=== PATIENT | female | born 1980 | race Caucasian/White ===

== ENCOUNTER 2022-12-22 12:27 | Observation (INO) | payer MEDICAID ==
[~2022-12-22] VITALS: Ht 164 cm; Wt 87.5 kg
[2022-12-22] MEDS ORDERED: PNV91TAB8 PO (13:07)
[2022-12-22 14:13] LABS: BASOPHILS % (AUTO) 0.2 % (0.0-2.0); EOSINOPHILS # (AUTO) 0.1 K/uL (0-0.4); EOSINOPHILS % (AUTO) 1.3 % (0.0-4.0); HEMATOCRIT 28.8 % (36-48); HEMOGLOBIN 9.8 g/dL (12.0-16.0); LYMPHOCYTES # (AUTO) 2.2 K/uL (2.5-16.5); LYMPHOCYTES % (AUTO) 22.8 % (20.5-51.1); MEAN CORPUSCULAR HEMOGLOBIN 31 pg (27-31); MEAN CORPUSCULAR HGB CONC 34 g/dL (33-37); MEAN CORPUSCULAR VOLUME 91.3 fL (80-94); MONOCYTES # (AUTO) 0.6 K/uL (0.8-1.0); MONOCYTES % (AUTO) 6.7 % (1.7-9.3); NEUTROPHILS # (AUTO) 6.7 K/uL (1.8-7.7); PLATELET COUNT (AUTO) 314 K/uL (140-450); RED BLOOD CELL COUNT(AUTO) 3.15 MIL/uL (4.20-5.40); RED CELL DISTRIBUTION WIDTH 14.2 % (11.6-13.7); WHITE BLOOD COUNT (AUTO) 9.7 K/uL (4.8-10.8)
[2022-12-22 14:20] LABS: ALBUMIN 2.7 g/dL (3.4-5.0); ANION GAP 13.2 (8-16); CARBON DIOXIDE 25.1 mmol/L (21-32); CREATININE 0.8 mg/dL (0.6-1.3); POTASSIUM 4.3 mmol/L (3.5-5.1); TOTAL BILIRUBIN 0.2 mg/dL (0.0-1.0)
[2022-12-22 15:35] VITALS: BP 142/69
== END 2022-12-22 17:00 | disposition home or self-care (01) ==
LOC: MLD 12:27
PROVIDERS: ADMIT Obstetrics & Gynecology; ATTEND Obstetrics & Gynecology
DX: O36.8130 Decreased fetal movements, third trimester, not applicable or unspecified (principal); Z20.822 Contact with and (suspected) exposure to COVID-19; O09.523 Supervision of elderly multigravida, third trimester; Z3A.31 31 weeks gestation of pregnancy
CPT/HCPCS: 36415; 76819; 80053; 85025; 85384; 86886; 86900; 86901; 87426; G0378; Q0092; 59025; 81000

== ENCOUNTER 2023-01-06 12:05 | Observation (INO) | payer MEDICAID ==
[~2023-01-06] VITALS: Ht 162.6 cm; Wt 89.8 kg
[2023-01-06 12:05] VITALS: BP 145/79
[~2023-01-06 12:05] MED LIST: PNV91TAB8 PO
[2023-01-06] MEDS ORDERED: CEPH-588 PO (21:12)
[2023-01-06] MEDS ORDERED: ACET-10509 PO (21:12)
== END 2023-01-06 12:55 | disposition still patient (30) ==
LOC: MLD 12:05
PROVIDERS: ADMIT Obstetrics & Gynecology; ATTEND Obstetrics & Gynecology
DX: O26.893 Other specified pregnancy related conditions, third trimester (principal); R10.9 Unspecified abdominal pain; Z3A.33 33 weeks gestation of pregnancy
CPT/HCPCS: G0378; G0379

== ENCOUNTER 2023-01-06 12:48 | Emergency (ER) | payer MEDICAID ==
[~2023-01-06] VITALS: Ht 165.1 cm; Wt 77.1 kg
[2023-01-06 12:53] VITALS: BP 165/88
--- NOTE | 2023-01-06 12:55 | NUR ---
AMB BED 2
[2023-01-06 13:21] LABS: BASOPHILS % (AUTO) 0.3 % (0.0-2.0); HEMOGLOBIN 10.6 g/dL (12.0-16.0); MEAN CORPUSCULAR HEMOGLOBIN 31 pg (27-31); MEAN CORPUSCULAR HGB CONC 34 g/dL (33-37); MEAN CORPUSCULAR VOLUME 90.5 fL (80-94); MONOCYTES # (AUTO) 0.5 K/uL (0.8-1.0); MONOCYTES % (AUTO) 3.1 % (1.7-9.3); NEUTROPHILS # (AUTO) 15.8 K/uL (1.8-7.7); PLATELET COUNT (AUTO) 349 K/uL (140-450); RED BLOOD CELL COUNT(AUTO) 3.42 MIL/uL (4.20-5.40); RED CELL DISTRIBUTION WIDTH 14.3 % (11.6-13.7); WHITE BLOOD COUNT (AUTO) 17.4 K/uL (4.8-10.8)
[2023-01-06 13:35] LABS: ANION GAP 16.6 (8-16); CARBON DIOXIDE 21.2 mmol/L (21-32); CREATININE 0.7 mg/dL (0.6-1.3); POTASSIUM 3.8 mmol/L (3.5-5.1); TOTAL BILIRUBIN 0.3 mg/dL (0.0-1.0)
[2023-01-06 13:38] LABS: LYMPHOCYTES % (AUTO) 5.5 % (20.5-51.1); NEUTROPHILS % (AUTO) 91.1 % (42.2-75.2)
[2023-01-06 14:19] LABS: APPEARANCE,URINE CLOUDY (CLEAR); BILIRUBIN,URINE NEGATIVE (NEGATIVE); BLOOD, URINE TRACE-I (NEGATIVE); COLOR,URINE YELLOW (YELLOW); LEUKOCYTE ESTERASE ,URINE 2+ (NEGATIVE); NITRITE, URINE NEGATIVE (NEGATIVE); UGLUCOSE NEGATIVE (NEGATIVE)
[2023-01-06 14:25] LABS: RBC,URINE 0-5 /HPF (0-5); URINE AMORPHOUS URATE 1+ /HPF (None Seen); WBC,URINE 16-25 (MOD) /HPF (0-5)
[2023-01-06] MEDS ORDERED: ONDANSETRON 4 MG/2 ML VIAL IM ONE (15:50)
[2023-01-06] MEDS ORDERED: ONDANSETRON 4 MG/2 ML VIAL IVP ONE (15:50)
[2023-01-06] MEDS ORDERED: NACL 0.9% 1,000 ML IV ONE (15:50)
[2023-01-06] MEDS ORDERED: ACETAMINOPHEN EXTRA STRENGTH 500 MG TAB PO ONE ×2 (15:55→19:20)
[2023-01-06] MEDS ORDERED: cefTRIAXone 1,000 MG VIAL ONE (16:35)
--- NOTE | 2023-01-06 19:00 | NUR ---
PT C/O RIGHT SIDED ABDOMINAL PAIN SINCE THIS AM, 28 WEEKS CLEARED BY [facility]: DENIES
--- NOTE | 2023-01-06 20:00 | NUR ---
PT IS HUNGRY AND WANTED TO EAT. MD NOTIFIED. ITEM WAS PROVIDED. PT IS TOLERATED.
--- NOTE | 2023-01-06 21:00 | NUR ---
PT WISH TO GO HOME. DR. SOLORIO IS NOTIFIED.
[2023-01-06] MEDS ORDERED: ACET-10509 PO (21:12)
[2023-01-06] MEDS ORDERED: CEPH-588 PO (21:12)
[2023-01-06 22:08] VITALS: BP 113/42
--- NOTE | 2023-01-06 22:13 | NUR ---
Patient does not wish to proceed with medical care recommended by DR. SOLORIO. Patient given information related to possible complications, up to and including , which could occur as a result of leaving hospital at this time. Patient verbalizes understanding of risks involved leaving against medical advice. Patient has signed AMA form. PT LEFT WITH HER BELONGINGS AND IV IS REMOVED.
== END 2023-01-06 22:13 | disposition left against medical advice (07) ==
LOC: MED 12:48
DX: O23.41 Unspecified infection of urinary tract in pregnancy, first trimester (principal); Z20.822 Contact with and (suspected) exposure to COVID-19; Z3A.01 Less than 8 weeks gestation of pregnancy
CPT/HCPCS: 36415; 76705; 76770; 76805; 76817; 80053; 81001; 81025; 83605; 83690; 85025; 87040; 87086; 87426; 96361; 96365; 96375; 99284; J0696; J2405; J7030; Q0092

== ENCOUNTER 2023-02-15 16:56 | Inpatient (IN) | payer MEDICAID ==
[~2023-02-15] VITALS: Ht 162 cm; Wt 88.9 kg
[2023-02-15] MEDS: LACTATED RINGERS 1,000 ML IV SCH ×2 (17:40→21:19)
[2023-02-15] MEDS ORDERED: CARBOPROST 250 MCG/ML AMP IM PRN (17:50)
[2023-02-15] MEDS ORDERED: LACTATED RINGERS 500 ML IV SCH (17:50)
[2023-02-15] MEDS ORDERED: METHYLERGONOVINE 0.2 MG/ML AMP IM PRN (17:50)
[2023-02-15 18:24] VITALS: BP 123/72
[2023-02-15 18:26] LABS: APPEARANCE,URINE CLEAR (CLEAR); BILIRUBIN,URINE NEGATIVE (NEGATIVE); BLOOD, URINE NEGATIVE (NEGATIVE); COLOR,URINE YELLOW (YELLOW); LEUKOCYTE ESTERASE ,URINE NEGATIVE (NEGATIVE); NITRITE, URINE NEGATIVE (NEGATIVE); PH,URINE 6.5 (5.0-9.0); UGLUCOSE NEGATIVE (NEGATIVE)
[2023-02-15 18:30] LABS: BASOPHILS # (AUTO) 0.2 K/uL (0.00-0.22); BASOPHILS % (AUTO) 1.6 % (0.0-2.0); EOSINOPHILS # (AUTO) 0.1 K/uL (0-0.4); EOSINOPHILS % (AUTO) 1.4 % (0.0-4.0); HEMATOCRIT 30.2 % (36-48); HEMOGLOBIN 10.4 g/dL (12.0-16.0); LYMPHOCYTES # (AUTO) 2.6 K/uL (2.5-16.5); LYMPHOCYTES % (AUTO) 26.9 % (20.5-51.1); MEAN CORPUSCULAR HEMOGLOBIN 31 pg (27-31); MEAN CORPUSCULAR HGB CONC 35 g/dL (33-37); MEAN CORPUSCULAR VOLUME 89.9 fL (80-94); MONOCYTES # (AUTO) 0.7 K/uL (0.8-1.0); MONOCYTES % (AUTO) 6.7 % (1.7-9.3); NEUTROPHILS # (AUTO) 6.2 K/uL (1.8-7.7); NEUTROPHILS % (AUTO) 63.4 % (42.2-75.2); PLATELET COUNT (AUTO) 180 K/uL (140-450); RED BLOOD CELL COUNT(AUTO) 3.36 MIL/uL (4.20-5.40); WHITE BLOOD COUNT (AUTO) 9.7 K/uL (4.8-10.8)
[2023-02-15 18:37] LABS: PROTHROMBIN TIME 8.8 secs (10.8-13.4)
[2023-02-15 18:39] LABS: ALBUMIN 2.6 g/dL (3.4-5.0); ANION GAP 14.5 (8-16); CARBON DIOXIDE 21.2 mmol/L (21-32); CREATININE 0.6 mg/dL (0.6-1.3); POTASSIUM 3.7 mmol/L (3.5-5.1); TOTAL BILIRUBIN 0.2 mg/dL (0.0-1.0)
[2023-02-15] MEDS ORDERED: MORPHINE SULFATE 5 MG/ML VIAL IVP PRN (19:55)
[2023-02-15] MEDS ORDERED: ONDANSETRON 4 MG/2 ML VIAL IVP PRN (19:55)
[2023-02-15] MEDS ORDERED: OXYTOCIN 20 UNITS in LACTATED RINGERS 1,000 ML IV SCH (19:55)
[2023-02-15] MEDS ORDERED: MISOPROSTOL 25 MCG TAB ONE (20:03)
[2023-02-16] MEDS ORDERED: MISOPROSTOL 25 MCG TAB VG SCH
[2023-02-16] MEDS ORDERED: MORPHINE SULFATE 10 MG/ML VIAL ONE (02:17)
[2023-02-16] MEDS: LACTATED RINGERS 1,000 ML IV SCH ×3 (03:27→09:57)
[2023-02-16] MEDS ORDERED: OXYTOCIN 20 UNITS/LR PREMIX 1,000 ML IV ONE (07:38)
[2023-02-16] MEDS ORDERED: ROPIVACAINE 0.2%/NS PREMIX 200 ML EPI ONE (08:26)
[2023-02-16] MEDS ORDERED: fentaNYL citrate 0.05 MG/ML VIAL ONE (08:26)
--- NOTE | 2023-02-16 09:25 | NUR ---
PATIENT HAS BEEN SCREENED AND CATEGORIZED LOW NUTRITION RISK. PATIENT WILL BE SEEN WITHIN 7 DAYS OF ADMISSION. 02/22/[address]
[2023-02-16] MEDS ORDERED: METHYLERGONOVINE 0.2 MG TAB PO PRN (15:10)
[2023-02-16] MEDS ORDERED: OXYTOCIN 10 UNITS/ML VIAL IM PRN (15:10)
[2023-02-16] MEDS ORDERED: BENZOCAINE/MENTHOL 20%-0.5% 60 GM CAN TP PRN (15:10)
[2023-02-16] MEDS ORDERED: MEASLES, MUMPS, AND RUBELLA 1 VIAL SQVAC ONE (15:10)
[2023-02-16] MEDS ORDERED: METHYLERGONOVINE 0.2 MG/ML AMP IM PRN (15:10)
[2023-02-16] MEDS: IBUPROFEN 800 MG TAB PO PRN (19:50)
[2023-02-17] MEDS: IBUPROFEN 800 MG TAB PO PRN (03:43)
[2023-02-17 07:12] LABS: HEMATOCRIT 26.6 % (36-48); HEMOGLOBIN 9.2 g/dL (12.0-16.0)
[2023-02-18] MEDS ORDERED: PHENYLEPHRINE 0.25% 1 EA SUPP RC PRN (10:10)
[2023-02-18] MEDS ORDERED: HYDR-2734 RC ×2 (10:34→15:19)
[2023-02-18] MEDS ORDERED: MIRABULK PO (10:36)
[2023-02-18] MEDS ORDERED: ASCO-519 PO (10:36)
[2023-02-18] MEDS ORDERED: POLY17PD46 PO (15:19)
[2023-02-18] MEDS ORDERED: ASCO500T95 PO (15:19)
[2023-02-18] MEDS ORDERED: FERROUS SULFATE 325 MG TABEC PO SCH (17:00)
[2023-02-19] MEDS ORDERED: POLYETHYLENE GLYCOL 17 GM/PKT PO SCH (09:00)
[2023-02-19] MEDS ORDERED: ASCORBIC ACID 500 MG TAB PO SCH (09:00)
== END 2023-02-18 18:24 | disposition home or self-care (01) | DRG 560 ==
LOC: OBSVTOIN 16:56 → MLD 16:56 → MFCC 02-16 14:40
PROVIDERS: ADMIT Obstetrics & Gynecology; ATTEND Obstetrics & Gynecology
PROC: 10E0XZZ Delivery of Products of Conception, External Approach (ICD-10-PCS; principal; 2023-02-16)
PROC: 3E0R3BZ Introduction of Anesthetic Agent into Spinal Canal, Percutaneous Approach (ICD-10-PCS; 2023-02-16)
PROC: 00HU33Z Insertion of Infusion Device into Spinal Canal, Percutaneous Approach (ICD-10-PCS; 2023-02-16)
DX: O41.03X0 Oligohydramnios, third trimester, not applicable or unspecified (principal); Z37.0 Single live birth; D62 Acute posthemorrhagic anemia; O69.81X0 Labor and delivery complicated by cord around neck, without compression, not applicable or unspecified; O99.62 Diseases of the digestive system complicating childbirth; Z3A.39 39 weeks gestation of pregnancy; K64.4 Residual hemorrhoidal skin tags; Z20.822 Contact with and (suspected) exposure to COVID-19
CPT/HCPCS: 36415; 51702; 59200; 59409; 76815; 80053; 81003; 85018; 85025; 85610; 85730; 86592; 86762; 86886; 86900; 86901; 87340; J2270; J2405; J2590; J2795; J3010; J7120; Q0092